=== PATIENT | male | born 1955 | race Caucasian/White ===

== ENCOUNTER → 2018-12-01 | Outpatient (CLI) | payer BC | LOC: FIMAGING 09:35 | PROVIDERS: ATTEND Internal Medicine | DX: R10.11 Right upper quadrant pain (principal) ==

== ENCOUNTER 2018-12-21 05:17 | Emergency (ER) | payer BC ==
[2018-12-21] MEDS ORDERED: ONDANSETRON 4 MG/2 ML VIAL ONE (05:36)
[2018-12-21] MEDS ORDERED: ONDANSETRON 4 MG/2 ML VIAL IVP ONE (05:36)
[2018-12-21] MEDS ORDERED: NS 1,000 ML IV ONE ×2 (05:37→06:20)
[2018-12-21] MEDS ORDERED: KETOROLAC 15 MG/1 ML SDV IVP ONE (05:44)
[2018-12-21] MEDS ORDERED: METOCLOPRAMIDE 10 MG/2 ML VIAL IVP ONE (05:44)
--- NOTE | 2018-12-21 05:57 | EDPHY ---
H & P Stated Complaint: migraine since midnight Source: Patient Exam Limitations: No limitations - Personal History Current Tetanus/Diphtheria Vaccine: Yes - Medical/Surgical History Hx Asthma: No Hx Chronic Respiratory Disease: No Hx Diabetes: No Hx Cardiac Disease: No Hx Renal Disease: No Hx Cirrhosis: No Hx Alcoholism: No Hx HIV/AIDS: No Hx Splenectomy or Spleen Trauma: No Other PMH: small fiber neuropathy, migraines - Social History Smoking Status: Never smoked Time Seen by Provider: 12/21/18 05:34 HPI/ROS: HPI The patient presents with headache which began slowly at about midnight. The patient describes a throbbing sensation which is retro-orbital and bilateral which has been constant ever since it started. It is associated with nausea and photophobia. It feels like his prior migraine-type headaches. At home, he took 2 doses of Maxalt as well as oxycodone without any improvement in his symptoms, thus he comes to the emergency department. He is last headache was is in July. He suspects that his migraine was triggered by stopping Antabuse which she was prescribed by his Lyme disease doctor in [place]. He was taking this medication for about 1 month. REVIEW OF SYSTEMS 10 systems were reviewed and negative with the exception of the elements mentioned in the history of present illness. 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 for which he takes Lyrica and oxycodone, migraine-type headaches Soc Hx: Housed in [place], here with his PHYSICAL General Appearance: Alert, no distress Eyes: Pupils equal and round no pallor or injection ENT, Mouth: Mucous membranes moist Respiratory: There are no retractions, lungs are clear to auscultation Cardiovascular: Regular rate and rhythm Gastrointestinal: Abdomen is soft and non-tender, no masses, bowel sounds normal Neurological: A&O, moves all extremities Skin: Warm and dry, no rashes Musculoskeletal: Neck is supple non tender Extremities: symmetrical, full range of motion Psychiatric: Patient is oriented X 3, there is no agitation (Riguzzi,Ember) Constitutional: Initial Vital Signs Temperature (C) 36.3 C 12/21/18 05:19 Heart Rate 50 L 12/21/18 05:19 Respiratory Rate 18 12/21/18 05:19 Blood Pressure 147/87 H 12/21/18 05:19 O2 Sat (%) 98 12/21/18 05:19 O2 Delivery Mode Room Air O2 (L/minute) 36.5 Allergies/Adverse Reactions: acetaminophen [From Tylenol] Allergy (Verified 12/21/18 05:24) Home Medications: Medication Instructions Recorded ANTABUSE 12/21/18 Maxalt 12/21/18 Metoprolol Succinate 12/21/18 Medical Decision Making ED Course/Re-evaluation: I took over care of this patient at 7:00 a.m.. This patient is being treated for a typical migraine headache. He has a long history of migraine headaches. Prior to coming to the emergency department he took Maxalt and oxycodone which she has been prescribed. In the emergency department he was initially given Reglan, Toradol and Benadryl as well as 0.5 mg of hydromorphone. He was reassessed at 7:00 a.m. was feeling better but still had a headache. He was given IV Decadron and magnesium at this time. 7:40 a.m., the patient was re-evaluated. He was sleeping but easily arousable. He is feeling much better. He has been up to the bathroom without difficulty with a normal gait. I sat him up in bed. Repeat neurologic Assessment is nonfocal. He denies headache. He has no other complaints. At this time he feels comfortable going home with his who is in the room and will be driving. His neck is supple and nontender. Follow-up and return to emergency department precautions were reviewed with him and his . All of their questions were answered. He was discharged with his in good condition. ( Mihaela Simms) Differential Diagnosis: 63-year-old male with history of migraine headaches, reported chronic Lyme disease presents from home with about 5 hr of persistent throbbing retro- orbital headache associated with nausea and photophobia. Here, vital signs are normal and physical exam is unremarkable. Suspect recurrent migraine-type headache based on history and current presentation. We will plan on IV fluids and migraine medications. I have also considered sinusitis and tension type headache. [facility], he has several prescriptions for Adderall though no opiate prescriptions. In [facility], he does not have any visits to other emergency department. 7:00 a.m.- I have reassessed the patient he has received almost 2 L of fluid now on multiple medications. His headache is improved but continues still. He requests additional medications. I have ordered some magnesium and Decadron for him. I will sign the case out to the oncoming physician Dr. Simms pending the patient's reassessment. (Ember Cervantes) - Data Points Medications Given: Discontinued Medications Dexamethasone (Decadron Injection) 8 mg IVP EDNOW ONE Stop: 12/21/18 07:01 Last Admin: 12/21/18 07:11 Dose: 8 mg Diphenhydramine HCl (Benadryl Injection) 25 mg IVP EDNOW ONE Stop: 12/21/18 05:45 Last Admin: 12/21/18 05:50 Dose: 25 mg Hydromorphone HCl (Dilaudid) 0.5 mg IVP EDNOW ONE Stop: 12/21/18 06:20 Last Admin: 12/21/18 06:23 Dose: 0.5 mg Sodium Chloride (Ns) 1,000 mls @ 0 mls/hr IV EDNOW ONE; Wide Open PRN Reason: Protocol Stop: 12/21/18 05:38 Last Admin: 12/21/18 05:25 Dose: 1,000 mls Sodium Chloride (Ns) 1,000 mls @ 0 mls/hr IV EDNOW ONE; Wide Open PRN Reason: Protocol Stop: 12/21/18 06:21 Last Admin: 12/21/18 06:22 Dose: 1,000 mls Magnesium Sulfate/Dextrose (Magnesium Sulf 1 Gm (Premix)) 100 mls @ 100 mls/hr IV EDNOW ONE Stop: 12/21/18 07:59 Last Admin: 12/21/18 07:06 Dose: 100 mls Ketorolac Tromethamine (Toradol) 15 mg IVP EDNOW ONE Stop: 12/21/18 05:45 Last Admin: 12/21/18 05:50 Dose: 15 mg Metoclopramide HCl (Reglan Injection) 10 mg IVP EDNOW ONE Stop: 12/21/18 05:45 Last Admin: 12/21/18 05:50 Dose: 10 mg Ondansetron HCl (Zofran) 4 mg IVP EDNOW ONE Stop: 12/21/18 05:37 Last Admin: 12/21/18 06:48 Dose: Not Given Departure - Departure Disposition: Home, Routine, Self-Care Clinical Impression: Migraine headache Condition: Good Instructions: Migraine Headache (ED) Additional Instructions: Please follow-up with your primary care physician in 1-2 days unless your completely better. Please return to the emergency department if your worse in any way. Referrals: JACK CAMACOH [Other] - As per Instructions
[2018-12-21] MEDS ORDERED: HYDROmorphONE/DILAUDID 1 MG/ML INJ ONE (06:18)
[2018-12-21] MEDS ORDERED: HYDROmorphONE/DILAUDID 2 MG/ML INJ IVP ONE (06:19)
[2018-12-21] MEDS ORDERED: MAGNESIUM SULF 1 GM/DEXTROSE 100 ML IV ONE (07:00)
[2018-12-21] MEDS ORDERED: DEXAMETHASONE 4 MG/ML VIAL IVP ONE (07:00)
[2018-12-21 08:17] VITALS: BP 109/53
== END 2018-12-21 08:18 | disposition home or self-care (01) ==
DX: G43.909 Migraine, unspecified, not intractable, without status migrainosus (principal); E86.9 Volume depletion, unspecified
CPT/HCPCS: 96365; J1100; J1170; J1200; J1885; J2405; J2765; J3475